=== PATIENT | male | born 1970 | race American Indian/Alaskan Native ===

== ENCOUNTER 2020-02-19 13:49 | Emergency (ER) | payer BC ==
[2020-02-19 13:55] VITALS: BP 149/102
--- NOTE | 2020-02-19 14:24 | Event Note ---
ED Screening Note ED Screening Note: "gout flare in the left foot" that began 4 days ago he states he usually gets it in the toe and foot states he usually gets it once or twice states that he does not follow the diet no fall or injury PMHx none no allergies to meds
--- NOTE | 2020-02-19 14:24 | Emergency Department Report ---
ED Extremity Problem HPI - General Chief complaint: Extremity Problem,Nontraumatic Stated complaint: RIGHT FOOT PAIN Time Seen by Provider: 02/19/20 14:18 Source: patient Mode of arrival: Ambulatory Limitations: No Limitations - History of Present Illness Initial comments: pt is a 49 yo male who presents to the ED "gout flare in the left foot" that began 4 days ago he states he usually gets it in the toe and foot states he usually gets it once or twice a year states that he does not follow the diet for gout no fall or injury no numbness or weakness PMHx none no allergies to meds - Related Data Previous Rx's Medication Instructions Recorded Last Taken Type Acetaminophen/Codeine [Tylenol #3] 1 tab PO Q6H PRN #20 tab 10/16/15 Unknown Rx Ibuprofen [Motrin] 600 mg PO Q8H PRN #50 tablet 10/16/15 Unknown Rx Colchicine 0.6 mg PO DAILY 1 Days #3 capsule 02/19/20 Unknown Rx Indomethacin 50 mg PO TID #21 capsule 02/19/20 Unknown Rx Prednisone [predniSONE 10 mg 10 mg PO .TAPER #1 tab.ds.pk 02/19/20 Unknown Rx (6-Day Pack, 21 Tabs)] Allergies Allergy/AdvReac Type Severity Reaction Status Date / Time No Known Allergies Allergy Unverified 10/16/15 00:43 ED Review of Systems ROS: Stated complaint: RIGHT FOOT PAIN Other details as noted in HPI Comment: All other systems reviewed and negative ED Past Medical Hx - Past Medical History Previous Medical History?: Yes Hx Hypertension: Yes Additional medical history: gout - Social History Smoking Status: Never Smoker Substance Use Type: Alcohol - Medications Home Medications: Home Medications Medication Instructions Recorded Confirmed Last Taken Type Acetaminophen/Codeine [Tylenol #3] 1 tab PO Q6H PRN #20 tab 10/16/15 Unknown Rx Ibuprofen [Motrin] 600 mg PO Q8H PRN #50 tablet 10/16/15 Unknown Rx Colchicine 0.6 mg PO DAILY 1 Days #3 capsule 02/19/20 Unknown Rx Indomethacin 50 mg PO TID #21 capsule 02/19/20 Unknown Rx Prednisone [predniSONE 10 mg 10 mg PO .TAPER #1 tab.ds.pk 02/19/20 Unknown Rx (6-Day Pack, 21 Tabs)] ED Physical Exam - General Limitations: No Limitations General appearance: alert, in no apparent distress - Head Head exam: Present: atraumatic, normocephalic - Eye Eye exam: Present: normal appearance - ENT ENT exam: Present: mucous membranes moist - Extremities Exam Extremities exam: Present: other (mild edema, increased warmth, and generalized ttp of the left foot, FROM of the left ankle, foot, and toes, neurovascularly intact, no calf ttp) - Neurological Exam Neurological exam: Present: alert, oriented X3 - Psychiatric Psychiatric exam: Present: normal affect, normal mood - Skin Skin exam: Present: warm, dry, intact ED Course Vital Signs 02/19/20 13:54 Temperature 98.2 F Pulse Rate 83 Respiratory 18 Rate Blood Pressure 149/102 [Right] O2 Sat by Pulse 100 Oximetry ED Medical Decision Making - Medical Decision Making pt is a 49 yo male who presents to the ED "gout flare in the left foot" that began 4 days ago he states he usually gets it in the toe and foot states he usually gets it once or twice a year states that he does not follow the diet for gout no fall or injury no numbness or weakness PMHx none no allergies to meds VSS on exam: mild edema, increased warmth, and generalized ttp of the left foot, FROM of the left ankle, foot, and toes, neurovascularly intact, no calf ttp. Examination consistent with acute gout flare. No signs of septic joint, no signs of DVT, patient has had no acute traumatic injury. Patient given prescription for colchicine, indomethacin, prednisone. Advised patient please take medication as prescribed. follow up with a primary care doctor. please follow the diet for gout. return to the emergency room for any new or worsening symptoms. Critical care attestation.: If time is entered above; I have spent that time in minutes in the direct care of this critically ill patient, excluding procedure time. ED Disposition Clinical Impression: Gout of foot Qualifiers: Gout etiology: unspecified cause Chronicity: acute Laterality: left Qualified Code(s): M10.9 - Gout, unspecified Disposition: TO HOME OR SELFCARE Is pt being admited?: No Does the pt Need Aspirin: No Condition: Stable Instructions: Acute Gouty Arthritis (ED) Additional Instructions: please take medication as prescribed. follow up with a primary care doctor. please follow the diet for gout. return to the emergency room for any new or worsening symptoms. Prescriptions: Colchicine 0.6 mg PO DAILY 1 Days #3 capsule Indomethacin 50 mg PO TID #21 capsule Prednisone [predniSONE 10 mg (6-Day Pack, 21 Tabs)] 10 mg PO .TAPER #1 tab.ds.pk Referrals: PAUL SALINAS MD [Staff Physician] - 3-5 Days [facility] [Provider Group] - 3-5 Days Time of Disposition: 14:33 Print Language: MONGOLIAN
== END 2020-02-19 14:43 | disposition home or self-care (01) ==
LOC: ED 13:49
DX: M10.071 Idiopathic gout, right ankle and foot (principal); I10 Essential (primary) hypertension; Z79.1 Long term (current) use of non-steroidal anti-inflammatories (NSAID); Z79.899 Other long term (current) drug therapy
CPT/HCPCS: 99281

== ENCOUNTER 2021-03-28 02:02 | Emergency (ER) | payer SELFPAY ==
[2021-03-28] MEDS ORDERED: cloNIDine 0.2 MG TAB PO ONE (04:34)
--- NOTE | 2021-03-28 05:23 | Emergency Department Report ---
ED General Adult HPI - General Chief complaint: High BP Stated complaint: HIGH BP Time Seen by Provider: 03/28/21 04:29 Source: patient Mode of arrival: Ambulatory Limitations: No Limitations - History of Present Illness Initial comments: Patient is a 50-year-old F [place] male with past medical history hypertension who states he has been compliant with his lisinopril 20 mg who is presenting with elevated blood pressure. Patient states he feels like a pressure type sensation behind his eyes. Took his blood pressure several times at home was elevated. Patient did have some noncompliance with his diet several days ago. Denies chest pain shortness of breath or focal neurological deficits at this time. Severity scale (0 -10): 3 - Related Data Previous Rx's Medication Instructions Recorded Last Taken Type Acetaminophen/Codeine [Tylenol #3] 1 tab PO Q6H PRN #20 tab 10/16/15 Unknown Rx Ibuprofen [Motrin] 600 mg PO Q8H PRN #50 tablet 10/16/15 Unknown Rx Colchicine 0.6 mg PO DAILY 1 Days #3 capsule 02/19/20 Unknown Rx Indomethacin 50 mg PO TID #21 capsule 02/19/20 Unknown Rx Prednisone [predniSONE 10 mg 10 mg PO .TAPER #1 tab.ds.pk 02/19/20 Unknown Rx (6-Day Pack, 21 Tabs)] lisinopriL [Zestril TAB] 40 mg PO QDAY #30 tablet 03/28/21 Unknown Rx Allergies Allergy/AdvReac Type Severity Reaction Status Date / Time No Known Allergies Allergy Unverified 10/16/15 00:43 ED Review of Systems ROS: Stated complaint: HIGH BP Other details as noted in HPI Comment: All other systems reviewed and negative ED Past Medical Hx - Past Medical History Previous Medical History?: Yes Hx Hypertension: Yes Additional medical history: gout - Surgical History Past Surgical History?: No - Social History Smoking Status: Never Smoker Substance Use Type: Alcohol - Medications Home Medications: Home Medications Medication Instructions Recorded Confirmed Last Taken Type Acetaminophen/Codeine [Tylenol #3] 1 tab PO Q6H PRN #20 tab 10/16/15 Unknown Rx Ibuprofen [Motrin] 600 mg PO Q8H PRN #50 tablet 10/16/15 Unknown Rx Colchicine 0.6 mg PO DAILY 1 Days #3 capsule 02/19/20 Unknown Rx Indomethacin 50 mg PO TID #21 capsule 02/19/20 Unknown Rx Prednisone [predniSONE 10 mg 10 mg PO .TAPER #1 tab.ds.pk 02/19/20 Unknown Rx (6-Day Pack, 21 Tabs)] lisinopriL [Zestril TAB] 40 mg PO QDAY #30 tablet 03/28/21 Unknown Rx ED Physical Exam - General Limitations: No Limitations General appearance: alert, in no apparent distress - Head Head exam: Present: atraumatic, normocephalic - Eye Eye exam: Present: normal appearance, PERRL, EOMI - ENT ENT exam: Present: mucous membranes moist - Neck Neck exam: Present: normal inspection - Respiratory Respiratory exam: Present: normal lung sounds bilaterally. Absent: respiratory distress, wheezes, rales, rhonchi - Cardiovascular Cardiovascular Exam: Present: regular rate, normal rhythm, normal heart sounds. Absent: systolic murmur, diastolic murmur, rubs, gallop - GI/Abdominal GI/Abdominal exam: Present: soft, normal bowel sounds. Absent: distended, tenderness, guarding, rebound - Rectal Rectal exam: Present: deferred - Extremities Exam Extremities exam: Present: normal inspection - Back Exam Back exam: Present: normal inspection - Neurological Exam Neurological exam: Present: alert, oriented X3 - Psychiatric Psychiatric exam: Present: normal affect, normal mood - Skin Skin exam: Present: warm, dry, intact, normal color. Absent: rash ED Course Vital Signs 03/28/21 03/28/21 03/28/21 02:16 02:38 04:58 Temperature 98.2 F Pulse Rate 82 79 Respiratory 19 14 Rate Blood Pressure 172/106 Blood Pressure 160/119 172/130 [Left] O2 Sat by Pulse 98 99 Oximetry ED Medical Decision Making - Medical Decision Making Patient given Catapres. We will increase his lisinopril dose to 40 mg and the patient stable for discharge Critical care attestation.: If time is entered above; I have spent that time in minutes in the direct care of this critically ill patient, excluding procedure time. ED Disposition Clinical Impression: Hypertensive urgency Disposition: DC-01 TO HOME OR SELFCARE Is pt being admited?: No Does the pt Need Aspirin: No Condition: Stable Instructions: Hypertension, Adult, [id number] Prescriptions: lisinopriL [Zestril TAB] 40 mg PO QDAY #30 tablet Time of Disposition: 05:22
[2021-03-28 06:24] VITALS: BP 125/88
== END 2021-03-28 06:24 | disposition home or self-care (01) ==
LOC: ED 02:02
DX: I16.0 Hypertensive urgency (principal); Z79.1 Long term (current) use of non-steroidal anti-inflammatories (NSAID); Z79.899 Other long term (current) drug therapy
CPT/HCPCS: 99282